=== PATIENT | female | born 1930 | race Caucasian/White ===

== ENCOUNTER 2018-04-05 15:26 | Observation (INO) | payer MEDICARE, MEDICAID ==
[2018-04-05] MEDS ORDERED: Nitroglycerin 0.4 MG Tab.SL SL ONE (15:46)
[2018-04-05] MEDS ORDERED: Ondansetron 4 MG/2 ML SDV IVPUSH ONE (15:47)
--- NOTE | 2018-04-05 15:54 | EDM.PDOC ---
ED HPI GENERAL MEDICAL PROBLEM - General Stated Complaint: CHEST PAIN Time Seen by Provider: 04/05/18 15:30 Source of Information: Reports: Patient, Mcc Records History Limitations: Reports: No Limitations - History of Present Illness INITIAL COMMENTS - FREE TEXT/NARRATIVE: c/o cp [facility], had pressure in mid chest, went to her room, had V x 1, given a NTG and pain went away comes to ED with c/o L arm numb, EKG with SR 93, no ST change, no cp a few minutes later she felt pressure in her chest, given another SL NTG altho pressure gone before NTG given, no inc HR or other distress h/o NM x 2 ED ROS GENERAL - Review of Systems Review Of Systems: See Below Constitutional: Reports: No Symptoms HEENT: Reports: No Symptoms Respiratory: Reports: No Symptoms. Denies: Shortness of Breath, Wheezing, Cough Cardiovascular: Reports: Chest Pain Endocrine: Reports: No Symptoms GI/Abdominal: Reports: Nausea, Vomiting : Reports: No Symptoms Musculoskeletal: Reports: No Symptoms Skin: Reports: No Symptoms Neurological: Reports: No Symptoms Psychiatric: Reports: No Symptoms Hematologic/Lymphatic: Reports: No Symptoms Immunologic: Reports: No Symptoms ED EXAM, GENERAL - Physical Exam Exam: See Below Exam Limited By: No Limitations General Appearance: Alert, WD/WN, No Apparent Distress Ears: Normal External Exam, Hearing Grossly Normal Nose: Normal Inspection, Normal Mucosa, No Blood Throat/Mouth: Normal Inspection, Normal Lips, Normal Teeth, Normal Gums, Normal Oropharynx, Normal Voice, No Airway Compromise Head: Atraumatic, Normocephalic Neck: Normal Inspection, Supple, Non-Tender, Full Range of Motion Respiratory/Chest: No Respiratory Distress, Lungs Clear, Normal Breath Sounds, No Accessory Muscle Use, Chest Non-Tender, Other (no cough, PO 95%). No: Respiratory Distress, Rales, Rhonchi, Wheezing Cardiovascular: Regular Rate, Rhythm, No Gallop, No JVD, No Rub, Other (2/6 MINO at LSB, quiet precordium, trace edema b/l, symmetric) GI/Abdominal: Normal Bowel Sounds, Soft, Non-Tender, No Distention, No Mass Back Exam: Normal Inspection, Full Range of Motion, NT Extremities: Normal Inspection, Normal Range of Motion, Non-Tender Neurological: Alert, CN II-XII Intact, Normal Cognition, No Motor/Sensory Deficits Psychiatric: Normal Affect, Normal Mood Skin Exam: Warm, Dry, Intact, Normal Color, No Rash Lymphatic: No Adenopathy Course - Vital Signs Last Recorded V/S: Last Vital Signs Temp Pulse Resp BP 155/86 H 04/05/18 15:51 Pulse Ox - Orders/Labs/Meds Orders: Active Orders 24 hr Category Date Time Status Chest 1V Frontal [CR] Stat Exams 04/05/18 15:47 Ordered EKG 12 Lead [EK] Routine Ther 04/05/18 15:47 Ordered Labs: Laboratory Tests 04/05/18 04/05/18 04/05/18 Range/Units 16:05 16:05 16:05 WBC 5.7 (4.5-12.0) X10-3/uL RBC 4.00 (3.23-5.20) x10(6)uL Hgb 12.6 (11.5-15.5) g/dL Hct 36.8 (30.0-51.3) % MCV 92.0 (80-96) fL MCH 31.5 (27.7-33.6) pg MCHC 34.3 (32.2-35.4) g/dL RDW 13.0 (11.5-15.5) % Plt Count 226 (125-369) X10(3)uL MPV 7.8 (7.4-10.4) fL Neut % (Auto) 66.4 (46-82) % Lymph % (Auto) 21.9 (13-37) % [place] % (Auto) 8.9 (4-12) % Eos % (Auto) 3 (1.0-5.0) % Baso % (Auto) 0 (0-2) % Neut # (Auto) 3.8 (1.6-8.3) # Lymph # (Auto) 1.3 (0.6-5.0) # [place] # (Auto) 0.5 (0.0-1.3) # Eos # (Auto) 0.1 (0.0-0.8) # Baso # (Auto) 0.0 (0.0-0.2) # PT (8.7-11.1) INR (0.89-1.13) D-Dimer, Quantitative 0.72 H (0.0-0.59) mg/LFEU Sodium 138 (135-145) mmol/L Potassium 3.5 (3.5-5.3) mmol/L Chloride 102 (100-110) mmol/L Carbon Dioxide 28 (21-32) mmol/L BUN 22 H (7-18) mg/dL Creatinine 1.6 H (0.55-1.02) mg/dL Est Cr Clr Drug Dosing TNP Estimated GFR (MDRD) 30 L (>60) BUN/Creatinine Ratio 13.8 (9-20) Glucose 105 (80-116) mg/dL Calcium 9.6 (8.6-10.2) mg/dL Total Bilirubin 0.4 (0.1-1.3) mg/dL AST 19 (5-25) IU/L ALT 18 (12-36) U/L Alkaline Phosphatase 46 L (56-112) IU/L Troponin I (<0.017-0.056) ng/mL C-Reactive Protein (0.5-0.9) mg/dL NT-Pro-B Natriuret Pep (<=450) pg/mL Total Protein 5.4 L (6.0-8.0) g/dL Albumin 3.3 (3.2-4.6) g/dL Globulin 2.1 g/dL Albumin/Globulin Ratio 1.6 04/05/18 04/05/18 Range/Units 16:05 16:05 WBC (4.5-12.0) X10-3/uL RBC (3.23-5.20) x10(6)uL Hgb (11.5-15.5) g/dL Hct (30.0-51.3) % MCV (80-96) fL MCH (27.7-33.6) pg MCHC (32.2-35.4) g/dL RDW (11.5-15.5) % Plt Count (125-369) X10(3)uL MPV (7.4-10.4) fL Neut % (Auto) (46-82) % Lymph % (Auto) (13-37) % [place] % (Auto) (4-12) % Eos % (Auto) (1.0-5.0) % Baso % (Auto) (0-2) % Neut # (Auto) (1.6-8.3) # Lymph # (Auto) (0.6-5.0) # [place] # (Auto) (0.0-1.3) # Eos # (Auto) (0.0-0.8) # Baso # (Auto) (0.0-0.2) # PT 11.0 (8.7-11.1) INR 1.13 (0.89-1.13) D-Dimer, Quantitative (0.0-0.59) mg/LFEU Sodium (135-145) mmol/L Potassium (3.5-5.3) mmol/L Chloride (100-110) mmol/L Carbon Dioxide (21-32) mmol/L BUN (7-18) mg/dL Creatinine (0.55-1.02) mg/dL Est Cr Clr Drug Dosing Estimated GFR (MDRD) (>60) BUN/Creatinine Ratio (9-20) Glucose (80-116) mg/dL Calcium (8.6-10.2) mg/dL Total Bilirubin (0.1-1.3) mg/dL AST (5-25) IU/L ALT (12-36) U/L Alkaline Phosphatase (56-112) IU/L Troponin I 0.039 (<0.017-0.056) ng/mL C-Reactive Protein 0.2 L (0.5-0.9) mg/dL NT-Pro-B Natriuret Pep 306 (<=450) pg/mL Total Protein (6.0-8.0) g/dL Albumin (3.2-4.6) g/dL Globulin g/dL Albumin/Globulin Ratio Meds: Medications Discontinued Medications Generic Name Dose Route Start Last Admin Trade Name Melissa PRN Reason Stop Dose Admin Nitroglycerin 0.4 mg 04/05/18 15:46 04/05/18 15:51 Nitrostat SL 04/05/18 15:47 0.4 mg ONETIME ONE Administration Ondansetron HCl 4 mg 04/05/18 15:47 04/05/18 16:24 Zofran IVPUSH 04/05/18 15:48 4 mg ONETIME ONE Administration - Re-Assessments/Exams Free Text/Narrative Re-Assessment/Exam: 04/05/18 16:51 [facility] her in bathroom on consecutive days and she could not longer care for him, he is in NH now in a w/c pt has done well altho has many medical problems, ambulates, not had CP however in the NH in the past 4m creat 1.6 today which pt says is baseline d-dimer inc'd, however renal function does not allow use of IV dye, will give lovenox and then re-evaluate for v/q scan or other testing in AM will r/o NM given her CP and known h/o CAD does have rales RLL of uncertain clinical sig, CxR 1v appears to be negative, there is a double shadow at the R base of the diaphragm which does not appear to be an infiltrate or effusion, will obtain a 2v CxR in AM will admit, pt agrees Departure - Departure Time of Disposition: 16:55 Disposition: Refer to Observation Condition: Good Clinical Impression: Chest pain, rule out acute myocardial infarction, Elevated d-dimer, Rales, Chronic renal insufficiency, H/O cardiac catheterization, Coronary artery disease Referrals: Don Nguyen MD [Primary Care Provider] - - My Orders Last 24 Hours: My Active Orders 04/05/18 15:47 Chest 1V Frontal [CR] Stat EKG 12 Lead [EK] Routine - Assessment/Plan Last 24 Hours: My Active Orders 04/05/18 15:47 Chest 1V Frontal [CR] Stat EKG 12 Lead [EK] Routine
[2018-04-05] MEDS ORDERED: Enoxaparin 60 MG/0.6 ML Syringe SUBCUT ONE (16:57)
[2018-04-05] MEDS ORDERED: Acetaminophen 325 MG Tab PO PRN (18:34)
[2018-04-05] MEDS ORDERED: Nitroglycerin 0.4 MG Tab.SL SL PRN (18:34)
[2018-04-05] MEDS ORDERED: Zolpidem 5 MG Tab PO PRN (18:34)
[2018-04-05] MEDS ORDERED: Ondansetron 4 MG/2 ML SDV IV PRN (18:34)
[2018-04-05] MEDS ORDERED: Magnesium Hydroxide 400 MG/5 ML Susp 30 ML Cup PO PRN (18:34)
[2018-04-05] MEDS ORDERED: Carvedilol 6.25 MG Tab PO ONE (21:37)
[2018-04-05] MEDS: hydrALAZINE 50 MG Tab PO SCH (22:04)
--- NOTE | 2018-04-06 08:56 | PCM.HP ---
H&P History of Present Illness - General Date of Service: 04/06/18 Admit Problem/Dx: Admission Diagnosis/Problem Admission Diagnosis/Problem Chest pain, rule out acute myocardial infarction Source of Information: Patient History Limitations: Reports: No Limitations - History of Present Illness Initial Comments - Free Text/Narative: Senait is an 88-year-old female from [place]. She was admitted for chest pain that started about 2 hours before admission every afternoon to the emergency room. She did scratch thing the throat and going to the chest area history of high blood pressure no shortness of breath. 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 She's never had coronary disease or cerebrovascular accident. She also has a history of chronic kidney disease, vitamin D deficiency, and multidrug- resistant Proteus mirabilis UTI. Overnight she slept well she's like to go home. She is pain-free. denies Pain Score (Numeric/FACES): 0 - Related Data Allergies/Adverse Reactions: Allergies Allergy/AdvReac Type Severity Reaction Status Date / Time adhesive tape Allergy Cannot Verified 04/05/18 19:02 Remember amlodipine Allergy Cannot Verified 04/05/18 19:02 Remember bilberry Allergy Cannot Verified 04/05/18 19:02 [From Bilberry Extract] Remember bioflavonoids Allergy Cannot Verified 04/05/18 19:02 [From Bilberry Extract] Remember cefadroxil [From Duricef] Allergy Cannot Verified 04/05/18 19:02 Remember Cephalosporins Allergy Cannot Verified 04/05/18 19:02 Remember chocolate flavor Allergy Cannot Verified 04/05/18 19:02 Remember ciprofloxacin Allergy Cannot Verified 04/05/18 19:02 Remember [place] And Derivatives Allergy Cannot Verified 04/05/18 19:02 Remember clindamycin Allergy Cannot Verified 04/05/18 19:02 Remember Iodinated Contrast- Oral and Allergy Cannot Verified 04/05/18 19:02 IV Dye Remember magnesium Allergy Cannot Verified 04/05/18 19:02 Remember metronidazole Allergy Cannot Verified 04/05/18 19:02 Remember nitrofurantoin Allergy Cannot Verified 04/05/18 19:02 Remember orange Allergy Cannot Verified 04/05/18 19:02 Remember Penicillins Allergy Cannot Verified 04/05/18 19:02 Remember potassium Allergy Cannot Verified 04/05/18 19:02 Remember quercetin Allergy Cannot Verified 04/05/18 19:02 [From Bilberry Extract] Remember Quinolones Allergy Cannot Verified 04/05/18 19:02 Remember rutin [From Bilberry Extract] Allergy Cannot Verified 04/05/18 19:02 Remember Lvolyup-Mlc-Rzx Reductase Allergy Cannot Verified 04/05/18 19:02 Inhibitor Remember Sulfa (Sulfonamide Allergy Cannot Verified 04/05/18 19:02 Antibiotics) Remember Home Medications: Home Meds .Mupirocin/Betamethason/[place] 1 applic TP TID PRN 04/05/18 [History] Acetaminophen [Tylenol] 650 mg PO Q4H PRN 04/05/18 [History] Aspirin [Adult Low Dose Aspirin EC] 81 mg PO DAILY 04/05/18 [History] Benzoca/Res/Aloe/Vit E/Vit A&D [Vagisil Cream] 1 applic VAG BID PRN 04/05/18 [ History] Budesonide [Budesonide EC] 6 mg PO DAILY 04/05/18 [History] Calcitriol [Rocaltrol] 0.25 mcg PO DAILY 04/05/18 [History] Carvedilol 6.25 mg BID 04/05/18 [History] Cetirizine [ZyrTEC] 10 mg PO DAILY PRN 04/05/18 [History] Cyanocobalamin (Vitamin B-12) [Cyanocobalamin Injection] 1,000 mcg IJ Q30D 04/05 [History] Ergocalciferol (Vitamin D2) [Vitamin D2] 50,000 units PO Q30D 04/05/18 [History] Famotidine/Ca Carb/Mag Hydrox [Tums Dual Action Tablet Chew] 1 tab PO Q4H PRN [History] Furosemide [Lasix] 20 mg PO DAILY PRN 04/05/18 [History] Gabapentin [Neurontin] 100 mg PO TID 04/05/18 [History] Hydrocortisone [Hydrocortisone 2.5% Crm] 1 applic DAILY PRN 04/05/18 [History] L.acidoph,Paracasei, B.lactis [Probiotic] 1 each PO DAILY 04/05/18 [History] Lidocaine 5% [Lidoderm 5%] 1 patch TOP DAILY PRN 04/05/18 [History] Loperamide [Imodium] 2 mg PO ASDIRECTED PRN 04/05/18 [History] Magnesium Hydroxide [Milk of Magnesia] 15 ml PO DAILY PRN 04/05/18 [History] Melatonin 5 mg PO BEDTIME 04/05/18 [History] Nitroglycerin [Nitrostat] 0.4 mg SL Q5M PRN 04/05/18 [History] Ondansetron [Zofran] 8 mg PO TID PRN 04/05/18 [History] Pentosan Polysulfate Sodium [Elmiron] 100 mg BID 04/05/18 [History] Polyethylene Glycol 3350 [MiraLAX] 8.5 gm PO DAILY 04/05/18 [History] Propylene Glycol/PEG 400/Pf [Systane Ultra 0.4-0.3% Eye Drp] 1 drop EYEBOTH BID 04/05/18 [History] Ranitidine HCl [Zantac] 150 mg PO BEDTIME 04/05/18 [History] SUMAtriptan [Imitrex] 25 mg PO DAILY PRN 04/05/18 [History] Sennosides/Docusate Sodium [Senna Plus Tablet] 1 tab Q48H 04/05/18 [History] Trospium Chloride [Trospium Chloride ER] 60 mg DAILY 04/05/18 [History] cloNIDine [Catapres] 0.1 mg PO DAILY PRN 04/05/18 [History] hydrALAZINE HCl [Hydralazine HCl] 100 mg PO TID 04/05/18 [History] Past Medical History HEENT History: Reports: Allergic Rhinitis, Other (See Below) Other HEENT History: sensorineural hearing loss, pseudophakia, bilateral dry eye syndrome, myopia of both eyes, astigmatism of the left eye. 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, diffuse connective tissue disease, vitamin D defficiency, myalgia and myositis Endocrine/Metabolic History: Reports: Hyperparathyroidism Hematologic History: Reports: Other (See Below) Other Hematologic History: pernicious anemia Oncologic (Cancer) History: Reports: Other (See Below) Other Oncologic History: angiomyolipoma Social & Family History - Family History Family Medical History: Noncontributory - Tobacco Use Smoking Status *Q: Never Smoker Second Hand Smoke Exposure: No - Caffeine Use Caffeine Use: Reports: Coffee Other Caffeine Use: 3 cups/day - Recreational Drug Use Recreational Drug Use: No H&P Review of Systems - Review of Systems: Review Of Systems: ROS reveals no pertinent complaints other than HPI. Exam - Exam Exam: See Below - Vital Signs Vital Signs: Last Vital Signs Temp 98.3 F 04/06/18 04:00 Pulse 67 04/06/18 04:00 Resp 20 04/06/18 07:48 BP 155/88 H 04/06/18 07:48 Pulse Ox 95 04/06/18 07:48 Weight: 58.377 kg - Exam General: Alert, Oriented, 4 HEENT: PERRLA, Hearing Intact, Mucosa Moist & [place], Nares Patent, Normal Nasal Septum, Posterior Pharynx Clear, Conjunctiva Clear, EOMI, EACs Clear, TMs Clear Neck: Supple, Trachea Midline, 2 Lungs: Clear to Auscultation, Normal Respiratory Effort Cardiovascular: Regular Rate, Regular Rhythm GI/Abdominal Exam: Normal Bowel Sounds, Soft, Non-Tender, No Organomegaly, No Distention, No Abnormal Bruit, No Mass, Pelvis Stable (Female) Exam: Deferred Rectal (Female) Exam: Deferred Back Exam: Normal Inspection, Full Range of Motion, NT Extremities: Normal Inspection, Normal Range of Motion, Non-Tender, No Pedal Edema, Normal Capillary Refill Skin: Warm, Dry, Intact Neurological: Cranial Nerves Intact, Reflexes Equal Bilateral Neuro Extensive - Mental Status: Alert, Oriented x3, Normal Mood/Affect, Normal Cognition Neuro Extensive - Motor, Sensory, Reflexes: CN II-XII Intact, Normal Gait, Normal Reflexes Psychiatric: Alert, Normal Affect, Normal Mood - Patient Data Lab Results Last 24 hrs: Laboratory Results - last 24 hr 04/05/18 04/05/18 04/05/18 Range/Units 16:05 16:05 16:05 WBC 5.7 (4.5-12.0) X10-3/uL RBC 4.00 (3.23-5.20) x10(6)uL Hgb 12.6 (11.5-15.5) g/dL Hct 36.8 (30.0-51.3) % MCV 92.0 (80-96) fL MCH 31.5 (27.7-33.6) pg MCHC 34.3 (32.2-35.4) g/dL RDW 13.0 (11.5-15.5) % Plt Count 226 (125-369) X10(3)uL MPV 7.8 (7.4-10.4) fL Neut % (Auto) 66.4 (46-82) % Lymph % (Auto) 21.9 (13-37) % [place] % (Auto) 8.9 (4-12) % Eos % (Auto) 3 (1.0-5.0) % Baso % (Auto) 0 (0-2) % Neut # (Auto) 3.8 (1.6-8.3) # Lymph # (Auto) 1.3 (0.6-5.0) # [place] # (Auto) 0.5 (0.0-1.3) # Eos # (Auto) 0.1 (0.0-0.8) # Baso # (Auto) 0.0 (0.0-0.2) # PT (8.7-11.1) INR (0.89-1.13) D-Dimer, Quantitative 0.72 H (0.0-0.59) mg/LFEU Sodium 138 (135-145) mmol/L Potassium 3.5 (3.5-5.3) mmol/L Chloride 102 (100-110) mmol/L Carbon Dioxide 28 (21-32) mmol/L BUN 22 H (7-18) mg/dL Creatinine 1.6 H (0.55-1.02) mg/dL Est Cr Clr Drug Dosing TNP Estimated GFR (MDRD) 30 L (>60) BUN/Creatinine Ratio 13.8 (9-20) Glucose 105 (80-116) mg/dL Calcium 9.6 (8.6-10.2) mg/dL Total Bilirubin 0.4 (0.1-1.3) mg/dL AST 19 (5-25) IU/L ALT 18 (12-36) U/L Alkaline Phosphatase 46 L (56-112) IU/L Troponin I (<0.017-0.056) ng/mL C-Reactive Protein (0.5-0.9) mg/dL NT-Pro-B Natriuret Pep (<=450) pg/mL Total Protein 5.4 L (6.0-8.0) g/dL Albumin 3.3 (3.2-4.6) g/dL Globulin 2.1 g/dL Albumin/Globulin Ratio 1.6 04/05/18 04/05/18 04/06/18 Range/Units 16:05 16:05 06:25 WBC (4.5-12.0) X10-3/uL RBC (3.23-5.20) x10(6)uL Hgb (11.5-15.5) g/dL Hct (30.0-51.3) % MCV (80-96) fL MCH (27.7-33.6) pg MCHC (32.2-35.4) g/dL RDW (11.5-15.5) % Plt Count (125-369) X10(3)uL MPV (7.4-10.4) fL Neut % (Auto) (46-82) % Lymph % (Auto) (13-37) % [place] % (Auto) (4-12) % Eos % (Auto) (1.0-5.0) % Baso % (Auto) (0-2) % Neut # (Auto) (1.6-8.3) # Lymph # (Auto) (0.6-5.0) # [place] # (Auto) (0.0-1.3) # Eos # (Auto) (0.0-0.8) # Baso # (Auto) (0.0-0.2) # PT 11.0 (8.7-11.1) INR 1.13 (0.89-1.13) D-Dimer, Quantitative 0.51 (0.0-0.59) mg/LFEU Sodium (135-145) mmol/L Potassium (3.5-5.3) mmol/L Chloride (100-110) mmol/L Carbon Dioxide (21-32) mmol/L BUN (7-18) mg/dL Creatinine (0.55-1.02) mg/dL Est Cr Clr Drug Dosing Estimated GFR (MDRD) (>60) BUN/Creatinine Ratio (9-20) Glucose (80-116) mg/dL Calcium (8.6-10.2) mg/dL Total Bilirubin (0.1-1.3) mg/dL AST (5-25) IU/L ALT (12-36) U/L Alkaline Phosphatase (56-112) IU/L Troponin I 0.039 (<0.017-0.056) ng/mL C-Reactive Protein 0.2 L (0.5-0.9) mg/dL NT-Pro-B Natriuret Pep 306 (<=450) pg/mL Total Protein (6.0-8.0) g/dL Albumin (3.2-4.6) g/dL Globulin g/dL Albumin/Globulin Ratio 05/25/18 Range/Units 06:25 WBC (4.5-12.0) X10-3/uL RBC (3.23-5.20) x10(6)uL Hgb (11.5-15.5) g/dL Hct (30.0-51.3) % MCV (80-96) fL MCH (27.7-33.6) pg MCHC (32.2-35.4) g/dL RDW (11.5-15.5) % Plt Count (125-369) X10(3)uL MPV (7.4-10.4) fL Neut % (Auto) (46-82) % Lymph % (Auto) (13-37) % [place] % (Auto) (4-12) % Eos % (Auto) (1.0-5.0) % Baso % (Auto) (0-2) % Neut # (Auto) (1.6-8.3) # Lymph # (Auto) (0.6-5.0) # [place] # (Auto) (0.0-1.3) # Eos # (Auto) (0.0-0.8) # Baso # (Auto) (0.0-0.2) # PT (8.7-11.1) INR (0.89-1.13) D-Dimer, Quantitative (0.0-0.59) mg/LFEU Sodium (135-145) mmol/L Potassium (3.5-5.3) mmol/L Chloride (100-110) mmol/L Carbon Dioxide (21-32) mmol/L BUN (7-18) mg/dL Creatinine (0.55-1.02) mg/dL Est Cr Clr Drug Dosing Estimated GFR (MDRD) (>60) BUN/Creatinine Ratio (9-20) Glucose (80-116) mg/dL Calcium (8.6-10.2) mg/dL Total Bilirubin (0.1-1.3) mg/dL AST (5-25) IU/L ALT (12-36) U/L Alkaline Phosphatase (56-112) IU/L Troponin I 0.054 (<0.017-0.056) ng/mL C-Reactive Protein (0.5-0.9) mg/dL NT-Pro-B Natriuret Pep (<=450) pg/mL Total Protein (6.0-8.0) g/dL Albumin (3.2-4.6) g/dL Globulin g/dL Albumin/Globulin Ratio Result Diagrams: 04/05/18 16:05 04/05/18 16:05 EKG INTERPRETATION Rhythm: NSR - Problem List (1) Chest pain, rule out acute myocardial infarction SNOMED Code(s): 51490973 ICD Code: R07.9 - CHEST PAIN, UNSPECIFIED Status: Acute Current Visit: Yes (2) HTN (hypertension) SNOMED Code(s): 49328249 ICD Code: I10 - ESSENTIAL (PRIMARY) HYPERTENSION Status: Acute Current Visit: Yes Qualifiers: Hypertension type: essential hypertension Qualified Code(s): I10 - Essential (primary) hypertension (3) CKD (chronic kidney disease) SNOMED Code(s): 616509186 ICD Code: N18.9 - CHRONIC KIDNEY DISEASE, UNSPECIFIED Status: Chronic Current Visit: Yes Qualifiers: Chronic kidney disease stage: stage 3 (moderate) Qualified Code(s): N18.3 - Chronic kidney disease, stage 3 (moderate) (4) Hyperparathyroidism SNOMED Code(s): 55985958 ICD Code: E21.3 - HYPERPARATHYROIDISM, UNSPECIFIED Status: Chronic Current Visit: Yes (5) Vitamin D deficiency SNOMED Code(s): 14418572 ICD Code: E55.9 - VITAMIN D DEFICIENCY, UNSPECIFIED Status: Chronic Current Visit: Yes (6) Insomnia SNOMED Code(s): 724547635 ICD Code: G47.00 - INSOMNIA, UNSPECIFIED Status: Chronic Current Visit: Yes Qualifiers: Insomnia type: primary Qualified Code(s): F51.01 - Primary insomnia (7) Urge incontinence SNOMED Code(s): 40499638 ICD Code: N39.41 - URGE INCONTINENCE Status: Chronic Current Visit: Yes Problem List Initiated/Reviewed/Updated: Yes Orders Last 24hrs: Active Orders 24 hr Category Date Time Status Admission Status [Patient Status] [ADT] Routine ADT 04/05/18 16:56 Active Oxygen Therapy [RC] PRN Care 04/05/18 18:34 Active Vital Signs [RC] 08,12,16,20,00,04 Care 04/05/18 18:34 Active Heart Healthy Diet [DIET] Diet 04/06/18 Breakfast Active Chest 1V Frontal [CR] Stat Exams 04/05/18 15:47 Taken Chest 2V [CR] AM Exams 04/06/18 05:11 Ordered Acetaminophen [Tylenol] Med 04/05/18 18:34 Active 650 mg PO Q4H PRN Aspirin [Halfprin] Med 04/06/18 09:00 Active 81 mg PO DAILY Carvedilol [Coreg] Med 04/06/18 09:00 Active 6.25 mg PO BID Magnesium Hydroxide [Milk of Magnesia] Med 04/05/18 18:34 Active 30 ml PO Q12H PRN Nitroglycerin [Nitrostat] Med 04/05/18 18:34 Active 0.4 mg SL Q5M PRN Ondansetron [Zofran] Med 04/05/18 18:34 Active 4 mg IV Q4H PRN Zolpidem [Ambien] Med 04/05/18 18:34 Active 5 mg PO BEDTIME PRN hydrALAZINE [Apresoline] Med 04/05/18 21:42 Active 100 mg PO TID Resuscitation Status Routine Resus Stat 04/05/18 18:34 Ordered EKG 12 Lead [EK] AM Ther 04/06/18 05:11 Ordered EKG 12 Lead [EK] Routine Ther 04/05/18 15:47 Ordered Medication Orders Acetaminophen (Tylenol) 650 mg PO Q4H PRN PRN Reason: Pain (Mild 1-3)/fever Aspirin (Halfprin) 81 mg PO DAILY SHA Carvedilol (Coreg) 6.25 mg PO BID SHA Hydralazine HCl (Apresoline) 100 mg PO TID SHA Last Admin: 04/05/18 22:04 Dose: 100 mg Magnesium Hydroxide (Milk Of Magnesia) 30 ml PO Q12H PRN PRN Reason: Constipation Nitroglycerin (Nitrostat) 0.4 mg SL Q5M PRN PRN Reason: Chest Pain Ondansetron HCl (Zofran) 4 mg IV Q4H PRN PRN Reason: Nausea/Vomiting Zolpidem Tartrate (Ambien) 5 mg PO BEDTIME PRN PRN Reason: Sleep Last Admin: 04/05/18 23:41 Dose: 5 mg Assessment/Plan Comment:: Patient is a symptomatically small. Both the EKG and troponin are unremarkable. Will discharge home on regular medication and follow-up as an outpatient with PCP,perhaps a stress test
[2018-04-06] MEDS ORDERED: Carvedilol 6.25 MG Tab PO SCH (09:00)
[2018-04-06] MEDS ORDERED: hydrALAZINE 50 MG Tab PO SCH (09:00)
[2018-04-06] MEDS ORDERED: Aspirin 81 MG Tab.EC PO SCH (09:00)
--- NOTE | 2018-04-06 09:07 | CR ---
INDICATION: Chest pain. CHEST: An AP upright view of the chest was obtained 04/05/2018, and compared with 04/16/2016, revealing the heart to be enlarged, somewhat similar to the previous examination. No evidence of an active infiltrate, effusion, or CHF is seen. Findings compatible with COPD are noted. Overlying EKG leads are noted. IMPRESSION: 1. No definite acute process. 2. ASHD with probable cardiomegaly. 3. Probable COPD. MTDD
[2018-04-06] MEDS: hydrALAZINE 50 MG Tab PO SCH (10:48)
== END 2018-04-06 10:23 | disposition home health service (06) ==
LOC: FB.ED 15:26 → FB.MS 17:42
PROVIDERS: ADMIT Emergency Medicine; ATTEND Family Medicine
DX: R07.9 Chest pain, unspecified (principal); I12.9 Hypertensive chronic kidney disease with stage 1 through stage 4 chronic kidney disease, or unspecified chronic kidney disease; N18.3 Chronic kidney disease, stage 3 (moderate); E55.9 Vitamin D deficiency, unspecified; I25.2 Old myocardial infarction; E78.5 Hyperlipidemia, unspecified; K21.9 Gastro-esophageal reflux disease without esophagitis; M81.0 Age-related osteoporosis without current pathological fracture; F51.01 Primary insomnia; N39.41 Urge incontinence; N25.81 Secondary hyperparathyroidism of renal origin; J30.9 Allergic rhinitis, unspecified; Z91.09 Other allergy status, other than to drugs and biological substances; Z88.8 Allergy status to other drugs, medicaments and biological substances; Z91.018 Allergy to other foods; Z88.1 Allergy status to other antibiotic agents; Z91.041 Radiographic dye allergy status; Z88.0 Allergy status to penicillin; Z88.2 Allergy status to sulfonamides; Z79.82 Long term (current) use of aspirin; Z79.899 Other long term (current) drug therapy
CPT/HCPCS: 36415; 71045; 80053; 83880; 84484; 85025; 85379; 85610; 86140; 93005; 96372; 96374; 99285; A9270; G0378; J1650; J2405

== ENCOUNTER 2019-01-10 08:52 | Inpatient (IN) | payer MEDICARE, BC, MEDICAID ==
[2019-01-10] MEDS ORDERED: Ondansetron 4 MG/2 ML SDV IV PRN (11:40)
[2019-01-10] MEDS ORDERED: Sodium Chloride 0.9% 10 ML Syringe FLUSH PRN (11:40)
[2019-01-10] MEDS ORDERED: Acetaminophen 325 MG Tab PO PRN (11:40)
[2019-01-10] MEDS ORDERED: Nitroglycerin 0.4 MG Tab.SL SL PRN ×2 (11:59→16:00)
[2019-01-10] MEDS ORDERED: Pantoprazole 40 MG Vial IV SCH (12:00)
[2019-01-10] MEDS ORDERED: Pantoprazole 80 MG in Sodium Chloride 0.9% 100 ML IV SCH (12:15)
[2019-01-10] MEDS: NS + KCl 20mEq/L 1,000 ML IV SCH ×2 (12:35→19:25)
[2019-01-10] MEDS ORDERED: Enoxaparin 30 MG/0.3 ML Syringe SUBCUT SCH (14:00)
[2019-01-10] MEDS ORDERED: NS + KCl 20mEq/L 1,000 ML IV SCH (22:15)
--- NOTE | 2019-01-11 07:44 | HP ---
ADMISSION DATE: 01/10/2019 REASON FOR VISIT: Complicated nausea, vomiting, dehydration. HISTORY OF PRESENT ILLNESS: Jenny Munoz is a delightful 88-year-old female, a resident of [facility], was seen and evaluated last evening at the home during nursing rounds. Quite ill. Nausea, complicated diarrhea, dehydration, and fever. Discussed hospitalization last evening, declined. Nursing staff was requested to be observant in the interim. I called this morning. Symptoms had continued. Weight loss suspected, dehydration continued, hospitalization indicated. MEDICATIONS: Med recon list at the time of this dictation not definable. Noted: 1. Acetaminophen. 2. Aspirin. 3. Budesonide. 4. Calcitriol. 5. Carvedilol. 6. Zyrtec. 7. Clonidine. 8. Vitamin B12. 9. Vitamin D2. 10.Famotidine. 11.Furosemide. 12.Gabapentin. 13.Hydralazine. 14.Hydrocortisone. 15.Loperamide. 16.Magnesium hydroxide. 17.Melatonin. 18.Nitroglycerin. 19.Zofran. 20.Elmiron. 21.MiraLAX. 22.Docusate. 23.Sumatriptan. 24.Trospium chloride. ALLERGIES: Host of allergies clearly define adhesive tape, amlodipine, bilberry, bioflavonoids, Duricef, cephalosporins, chocolate flavor, ciprofloxacin, citrus, clindamycin, magnesium, metronidazole, nitrofurantoin, orange, penicillin, potassium, quinolones, statins, and sulfa. PAST MEDICAL/SURGICAL HISTORY: Significant for surgical procedures, including right nephrectomy for kidney disease, benign surgical removal of portion of the left kidney, i.e. schwannoma, previous hysterectomy, bilateral oophorectomy, cholecystectomy with incidental appendectomy, bilateral cataract surgery. Chronic illnesses include chronic renal failure, hypertension. No other operative procedures, hospitalizations, unusual childhood diseases, major injuries, or fractures. 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 89, lives in [facility]. Nonsmoker. Nil alcohol consumption. No illicit drug use. FAMILY HISTORY: Noncontributory, given the patient's age. REVIEW OF SYSTEMS: GENERAL: Feeling poorly. EYES: Sees well. EARS: Hearing aids in place. OROPHARYNX: Intact dentition. Upper and lower plates. CHEST: No cough, wheeze, or congestion. CARDIOVASCULAR: No apparent chest pain. GENITOURINARY: Good voiding pattern. GI: Please see HPI. SKIN: No lesions, eruptions, or moles. ENDOCRINE: No excessive thirst or urination, dehydration in place though. NEUROLOGIC: Denies headache, blurred vision, weakness, or tremor. ASSESSMENT: Complicated gastroenteritis. PLAN: Appropriate laboratories, IV fluids. Intervention and care, treatment as appropriate, expect a short-term stay. We will check stools for norovirus and rotavirus to start, no indications for bacterial or parasitic diarrheas. Complementary care and well being. /[id number] ELIAS/BLOSSOM
--- NOTE | 2019-01-11 10:16 | PCM.PN ---
- General Info Date of Service: 01/11/19 Subjective Update: Doing much better. Vomiting gone.Got IV Fluids overnight - Review of Systems HEENT: Reports: No Symptoms Pulmonary: Reports: No Symptoms Cardiovascular: Reports: No Symptoms Gastrointestinal: Reports: No Symptoms - Patient Data Vitals - Most Recent: Last Vital Signs Temp 97.2 F 01/11/19 07:30 Pulse 87 01/11/19 07:30 Resp 18 01/11/19 07:30 BP 108/82 01/11/19 07:30 Pulse Ox 96 01/11/19 07:30 Weight - Most Recent: 50.349 kg I&O - Last 24 Hours: Intake & Output 01/10/19 01/11/19 01/11/19 22:59 06:59 14:59 Intake Total 1378 609 Balance 1378 609 Lab Results Last 24 Hours: Laboratory Results - last 24 hr 01/10/19 01/10/19 01/10/19 Range/Units 12:00 12:00 12:00 WBC 6.5 (4.5-12.0) X10-3/uL RBC 4.55 (3.23-5.20) x10(6)uL Hgb 14.0 (11.5-15.5) g/dL Hct 42.2 (30.0-51.3) % MCV 92.8 (80-96) fL MCH 30.9 (27.7-33.6) pg MCHC 33.3 (32.2-35.4) g/dL RDW 12.9 (11.5-15.5) % Plt Count 281 (125-369) X10(3)uL MPV 7.6 (7.4-10.4) fL Neut % (Auto) 71.8 (46-82) % Lymph % (Auto) 19.6 (13-37) % [place] % (Auto) 7.8 (4-12) % Eos % (Auto) 1 (1.0-5.0) % Baso % (Auto) 0 (0-2) % Neut # (Auto) 4.7 (1.6-8.3) # Lymph # (Auto) 1.3 (0.6-5.0) # [place] # (Auto) 0.5 (0.0-1.3) # Eos # (Auto) 0.0 (0.0-0.8) # Baso # (Auto) 0.0 (0.0-0.2) # Sodium 139 (135-145) mmol/L Potassium 3.6 (3.5-5.3) mmol/L Chloride 102 (100-110) mmol/L Carbon Dioxide 24 (21-32) mmol/L BUN 33 H D (7-18) mg/dL Creatinine 1.7 H (0.55-1.02) mg/dL Est Cr Clr Drug Dosing TNP Estimated GFR (MDRD) 28 L (>60) BUN/Creatinine Ratio 19.4 (9-20) Glucose 86 (80-116) mg/dL Lactic Acid 1.4 (0.4-2.2) mmol/L Calcium 9.0 (8.6-10.2) mg/dL Total Bilirubin 0.8 (0.1-1.3) mg/dL AST 24 D (5-25) IU/L ALT 19 (12-36) U/L Alkaline Phosphatase 52 L (56-112) IU/L Total Protein 6.0 (6.0-8.0) g/dL Albumin 3.3 (3.2-4.6) g/dL Globulin 2.7 g/dL Albumin/Globulin Ratio 1.2 Med Orders - Current: Current Medications Acetaminophen (Tylenol) 650 mg PO Q4H PRN PRN Reason: Pain (Mild 1-3)/fever Enoxaparin Sodium (Lovenox) 30 mg SUBCUT Q24H [facility] Last Admin: 01/10/19 14:12 Dose: 30 mg Potassium Chloride/Sodium Chloride (Normal Saline With 20 Meq Kcl) 1,000 mls @ 75 mls/hr IV ASDIRECTED [facility] Last Admin: 01/11/19 05:50 Dose: 75 mls/hr Nitroglycerin (Nitrostat) 0.4 mg SL Q5M PRN PRN Reason: Chest Pain Ondansetron HCl (Zofran) 4 mg IV Q4H PRN PRN Reason: Nausea/Vomiting Pantoprazole Sodium (Protonix Iv) 40 mg IV Q24H [facility] Last Admin: 01/10/19 13:02 Dose: 40 mg Sodium Chloride (Saline Flush) 10 ml FLUSH ASDIRECTED PRN PRN Reason: Keep Vein Open Discontinued Medications Potassium Chloride/Sodium Chloride (Normal Saline With 20 Meq Kcl) 1,000 mls @ 150 mls/hr IV Q6H [facility] Last Admin: 01/10/19 19:25 Dose: 150 mls/hr Pantoprazole Sodium 80 mg/ (Sodium Chloride) 100 mls @ 200 mls/hr IV .BOLUS SHA Nitroglycerin (Nitrostat) 0.4 mg SL Q5M PRN PRN Reason: Chest Pain - Exam General: Alert HEENT: Pupils Equal Neck: Supple Lungs: Clear to Auscultation Cardiovascular: Regular Rate GI/Abdominal Exam: Normal Bowel Sounds, Soft, Non-Tender - Problem List & Annotations (1) Acute gastroenteritis SNOMED Code(s): 01737565 Code(s): K52.9 - NONINFECTIVE GASTROENTERITIS AND COLITIS, UNSPECIFIED Status: Acute Current Visit: Yes (2) Dehydration SNOMED Code(s): 19011134 Code(s): E86.0 - DEHYDRATION Status: Acute Current Visit: Yes (3) HTN (hypertension) SNOMED Code(s): 34329761 Code(s): I10 - ESSENTIAL (PRIMARY) HYPERTENSION Status: Acute Current Visit: Yes Qualifiers: Hypertension type: essential hypertension Qualified Code(s): I10 - Essential (primary) hypertension - Problem List Review Problem List Initiated/Reviewed/Updated: Yes - Plan Plan:: DC home today.
--- NOTE | 2019-01-11 11:10 | DISCH ---
DISCHARGE DATE: 01/11/2019 REASON FOR ADMISSION: 1. Gastroenteritis. 2. Dehydration. DISCHARGE DIAGNOSES: 1. Gastroenteritis. 2. Dehydration. BRIEF HISTORY: This is a pleasant 88-year-old female, who was admitted yesterday for vomiting and inability to keep anything down. She got some IV fluids overnight, feels strong and ready to go today. DISCHARGE MEDICATIONS: She will go home on her regular medications that she was admitted with. DISPOSITION: Back to [facility]. TIME SPENT: More than 35 minutes. /[id number] URMILA/ELENAL
== END 2019-01-11 12:00 | DRG 641 ==
LOC: FB.MS 11:12
PROVIDERS: ADMIT Family Medicine; ATTEND Family Medicine
DX: E86.0 Dehydration (principal); K52.9 Noninfective gastroenteritis and colitis, unspecified; I12.9 Hypertensive chronic kidney disease with stage 1 through stage 4 chronic kidney disease, or unspecified chronic kidney disease; N18.9 Chronic kidney disease, unspecified; Z79.82 Long term (current) use of aspirin; Z79.899 Other long term (current) drug therapy; Z88.1 Allergy status to other antibiotic agents; Z88.0 Allergy status to penicillin; Z88.2 Allergy status to sulfonamides; Z88.8 Allergy status to other drugs, medicaments and biological substances; Z91.018 Allergy to other foods; Z90.5 Acquired absence of kidney; Z90.710 Acquired absence of both cervix and uterus; Z90.49 Acquired absence of other specified parts of digestive tract
CPT/HCPCS: 36415; 74018; 80053; 83605; 85025; 93005; C9113; J1650; J3480